=== PATIENT | male | born 1985 | race Caucasian/White ===

== ENCOUNTER 2017-11-22 20:43 | Emergency (ER) | payer OTHER ==
[2017-11-22] MEDS ORDERED: fentaNYL 100 MCG/2 ML SDV IVPUSH ONE ×2 (20:49→22:03)
[2017-11-22] MEDS ORDERED: Bacitracin Oint 1 GM U/D Packet TOP ONE (21:15)
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
[2017-11-22] MEDS ORDERED: fentaNYL 100 MCG/2 ML SDV ONE (21:59)
--- NOTE | 2017-11-25 09:12 | CR ---
Left fourth finger There is a comminuted fracture involving the tuft of the distal phalanx fourth finger. There is overl brittany soft tissue injury. Impression: 1. Fourth finger tuft fracture.
== END 2017-11-22 22:55 | disposition home or self-care (01) ==
LOC: JP.ED 20:43
DX: S68.625A Partial traumatic transphalangeal amputation of left ring finger, initial encounter (principal); W23.1XXA Caught, crushed, jammed, or pinched between stationary objects, initial encounter
CPT/HCPCS: 12002; 73140; 96374; 96376; 99284; J3010